=== PATIENT | male | born 1970 | race Two or more races ===

== ENCOUNTER 2016-11-15 20:27 | Emergency (ER) | payer MEDICAID ==
[~2016-11-15] VITALS: Ht 177.8 cm; Wt 77.1 kg
[2016-11-15 20:41] VITALS: BP 150/108
== END 2016-11-15 23:02 | disposition home or self-care (01) ==
LOC: ER 20:35
DX: S01.512A Laceration without foreign body of oral cavity, initial encounter (principal); I10 Essential (primary) hypertension; X58.XXXA Exposure to other specified factors, initial encounter; Y93.89 Activity, other specified; Y99.8 Other external cause status; Y92.89 Other specified places as the place of occurrence of the external cause